=== PATIENT | male | born 1975 | race Caucasian/White ===

== ENCOUNTER 2021-07-10 12:07 | Inpatient (IN) | payer BC ==
[~2021-07-10] VITALS: Ht 177.8 cm; Wt 93.0 kg
[2021-07-10] VITALS (17 sets, daily range): BP systolic 111–173; BP diastolic 82–115
[2021-07-10 12:27] LABS: ABSOLUTE LYMPHOCYTES 2.2 thou/uL (0.8-5.3); ABSOLUTE MONOCYTES 0.5 thou/uL (0.0-1.2); ABSOLUTE NEUTROPHILS 4.4 thou/uL (1.6-8.1); BASOPHILS 0.6 %; EOSINOPHILS 0.4 %; HEMATOCRIT 46.8 % (42.0-52.0); HEMOGLOBIN 16.5 gm/dL (14.0-18.0); LYMPHOCYTES 30.7 %; MCH 30.9 pg (26.0-34.0); MCHC 35.2 g/dL (28.0-37.0); MCV 87.8 fL (80.0-100.0); MONOCYTES 6.6 %; MPV 7.6 fl. (7.2-11.1); NUCLEATED RBCS 0 /100WBC; PLATELET COUNT* 197 thou/uL (150-400); POLYS 61.7 %; RBC 5.33 mil/uL (4.50-6.00); RDW-CV 14.5 % (10.5-14.5); WBC 7.1 thou/uL (4.0-11.0)
[2021-07-10] MEDS ORDERED: ASA81BEC PO (12:27)
[2021-07-10 12:59] LABS: CALCIUM 9.2 mg/dL (8.5-10.1); CREATININE 1.2 mg/dL (0.6-1.3); POTASSIUM 3.2 mmol/L (3.5-5.1)
[2021-07-10 13:03] LABS: ALBUMIN 4.3 g/dL (3.4-5.0); TOTAL BILIRUBIN 1.5 mg/dL (<0.1-1.0); TOTAL PROTEIN 8.8 g/dL (6.4-8.2)
--- NOTE | 2021-07-10 15:34 | CARD ---
[address] [address] CARDIAC CATH REPORT Name: AKSHAT ST Room: [place] [address] ADM IN .R.#: [id number] Admission: 07/10/21 Attend Phys: Bull Bolton MD, Discharge: Date of : 71 Report #: [id number] THIS REPORT FOR: cc: FAM - No family physician/PCP FAM - No family physician/PCP Bull Bolton MD [facility] ~ APPROVED REPORT Study performed: 07/10/2021 12:29:01 Patient Details Patient Status: ED Room #: The patient is a 45 year-old male Event Personnel Dr. Bull Bolton MD, Scrub: Flores Shafer RT(R), Monitor: Ted Estrada RT(R), RN: Estefania Procedures Performed [facility] Diagnostic, STEMI PCI of LAD and DIAG, Hemostasis of the Right Groin with Angioseal Indication STEMI Risk Factors Hypercholesterolemia, Hypertension Admission/Lab Medications/Medications given during procedure Angiomax bolus and infusion Procedure Narrative The patient was brought emergently to the Cardiac Catheterization Laboratory and was prepped and draped in a sterile manner. The right femoral was infiltrated with 2% Lidocaine subcutaneous anesthesia. A 6Fr [place] Sheath sheath was inserted into the right femoral artery. Coronary angiography was performed using coronary diagnostic catheters. The right coronary system was accessed and visualized with a Diagnostic JR4 6Fr catheter. The left coronary system was accessed and visualized with a Diagnostic JL4 6Fr catheter. The left ventricle was accessed and visualized with a Diagnostic 6Fr Pigtail catheter. Left ventricular/Aortic Valve gradient assessed via catheter pullback. Left ventriculogram was performed in ANDERSON projection. Pre-demployment femoral angiogram was performed . [place] [address] CARDIAC CATH REPORT Name: ALMA ROSAAKSHAT M Room: [address] IN [facility]#: [id number] Admission: 07/10/21 Attend Phys: Bull Bolton MD, Discharge: Date of : 71 Report #: [id number] deployed with a 6 Fr Angioseal. There was no hematoma. Intraoperative Conscious Sedation Sedation start time: 1244 Case end Time: 1353 Fluoro Time: 24.2 minutes Dose: DAP 322593 cGycm2 2680.76 mGy Contrast Type and Amount: 420 [place] Coronary Angiography The patient's coronary anatomy is right dominant. Diagnostic Cath Left Main 0% narrowing LAD 30% proximal narrowing with 95% mid vessel stenosis with local thrombus at the site and 80% ostial first diagonal stenosis. There was 75% irregular distal LAD narrowing with a question of local thrombus Circumflex Prominent though nondominant vessel with 8090% tubular narrowing of the proximal portion of the prominent first marginal branch Right Coronary Moderate size dominant vessel with 30% narrowing at the acute margin Left Ventriculography The left ventricle is normal in size with normal contractility. The left ventricular ejection fraction is estimated to be 65%. Left ventricular wall motion abnormalities are not present. There is no mitral insufficiency. Hemodynamics The aortic pressure is 130/90 mmHg with a mean of mmHg. The left ventricular pressure is 130/16ed mmHg with a mean of mmHg. The left ventricular end diastolic pressure is 16 mmHg. There was no gradient across the aortic valve upon pullback. PCI Technique Lesion Anticoagulation was achieved with Angiomax. 15 Percutaneous coronary intervention was performed on the mid left anterior descending artery segment. The lesion stenosis prior to intervention was 95% with JEMAL 2 flow. A XBLAD 3.5 6Fr Guide Catheter was used to engage the Left ostium. A Transparentrees 180cm Interventional Guidewire was used [place] [address] CARDIAC CATH REPORT Name: AKSHAT ST Room: [address] IN [facility]#: [id number] Admission: 07/10/21 Attend Phys: Bull Bolton MD, Discharge: Date of : 71 Report #: [id number] BALLOON DILATION A Balloon catheter Euphora SC 2.25x 12mm was inserted and inflated up to 8.00atm for 10seconds. Additional Inflation: 12.00atm for 13seconds. Additional Inflation: 12.00atm for 10seconds. STENT DEPLOYMENT A Drug Eluting stent [place] RX Stent 2.25x 30mm was inserted and inflated up to 12.00atm for 10seconds. Additional Inflation: 14.00atm for 12seconds. Additional Inflation: 15.00atm for 14seconds. POST STENT DEPLOYMENT BALLOON DILATION A Balloon catheter NC TrekRX 2.29p66jp was inserted and inflated up to 15.00atm for 12seconds. Additional Inflation: 16.00atm for 7seconds. Additional Inflation: 17.00atm for 10seconds. Final angiography reveals 10 % stenosis with JEMAL 3 flow. COMMENTS The PCI was technically complex by virtue of the bifurcation nature of the disease involving the LAD and prominent first diagonal branch. This required multiple wires and stenting of both branches to achieve a satisfactory angiographic result. PCI Technique Lesion 2 Percutaneous Coronary Intervention was performed on the first diagonal branch segment. The lesion stenosis prior to intervention was 80% with JEMAL 3 flow. A XBLAD 3.5 Guide Catheter was used to engage the Left ostium. A BMW 180cm Interventional Guidewire was used to cross the lesion. Balloon Dilation A Balloon catheter Mini Trek RX 2.0x8mm was inserted and inflated up to 10.00atm for 11seconds. Additional Inflation: 10.00atm for 8seconds. Additional Inflation: 10.00atm for 7seconds. Stent Deployment A Drug Eluting stent [place] RX 2.0x12mm was inserted and inflated up to 12.00atm for 18seconds. Additional Inflation: 15.00atm for 14seconds. Additional Inflation: 17.00atm for 13seconds. Final angiography reveals 0 % stenosis with JEMAL [address] Conclusion [address] [place] [address] CARDIAC CATH REPORT Name: AKSHAT ST Room: [address] IN M.R.#: [id number] Admission: 07/10/21 Attend Phys: Bull Bolton MD, Discharge: Date of : 71 Report #: [id number] 1. Acute anterior wall STEMI 2. Significant multivessel coronary artery disease characterized by the following: A 30% proximal LAD narrowing with 95% tubular mid vessel stenosis with local thrombus at the site and 75% irregular distal LAD narrowing with local thrombus noted; there was 80% proximal first diagonal stenosis B 80-90% stenosis of the proximal portion of the prominent first marginal branch of the circumflex C moderate size dominant right coronary artery with 30% narrowing at the acute margin 3. Mild elevation of left ventricular end-diastolic pressure rest 4. Successful PCI with deployment of a drug-eluting stent at the site of 95% tubular mid LAD stenosis with 10% residual narrowing and JEMAL-3 flow to the distal vessel 5. Successful PCI with deployment of a drug-eluting stent at site of 80% proximal first diagonal stenosis with 0% residual narrowing and JEMAL-3 flow to the distal vessel 6. Normal LV function, estimated ejection fraction being 65% without segmental wall motion abnormalities Recommendations Cardiac Risk Reduction Program Aggressive Medical Therapy Medications Administered Aspirin (any) Prasugrel Diagnostic Cath Approved by: Bull Bolton MD Date/Time: 07/10/2021 15:27:08 <ELECTRONICALLY SIGNED> By: Bull Bolton MD, [facility] 07/10/21 1534 1534 1534Bull Bolton MD, FAC /INF
[2021-07-11] VITALS (33 sets, daily range): BP systolic 96–140; BP diastolic 68–101
[2021-07-11 03:14] LABS: HEMATOCRIT 40.8 % (42.0-52.0); MCH 30.6 pg (26.0-34.0); MCHC 34.9 g/dL (28.0-37.0); MCV 87.6 fL (80.0-100.0); MPV 7.6 fl. (7.2-11.1); RBC 4.65 mil/uL (4.50-6.00); RDW-CV 14.4 % (10.5-14.5); WBC 6.5 thou/uL (4.0-11.0)
[2021-07-11 03:20] LABS: ALBUMIN 3.1 g/dL (3.4-5.0); ALKALINE PHOSPHATASE 71 U/L (46-116); ANION GAP 10 mmol/L (7-16); BUN 9 mg/dL (7-18); CALCIUM 8.3 mg/dL (8.5-10.1); CHLORIDE 104 mmol/L (98-107); CHOLESTEROL 200 mg/dL (<200); CO2 24 mmol/L (21-32); GLUCOSE 109 mg/dL (70-99); HDL CHOLESTEROL 34 mg/dL (>40); HEMOGLOBIN 14.2 gm/dL (14.0-18.0); LDL CHOLESTEROL 146 mg/dL (<100); POTASSIUM 3.6 mmol/L (3.5-5.1); SGOT 28 U/L (15-37); SGPT 19 U/L (30-65); SODIUM 138 mmol/L (136-145); TC:HDL 5.9 Ratio (Not establshd); TOTAL BILIRUBIN 0.6 mg/dL (<0.1-1.0); TOTAL PROTEIN 6.6 g/dL (6.4-8.2); TRIGLYCERIDE 100 mg/dL (<150); VLDL 20 mg/dL (<40)
[2021-07-11 03:35] LABS: SERUM ASSESSMENT Clear
--- NOTE | 2021-07-11 11:48 | EKG ---
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1975 Requested By: Rakesh Duffy Order Number: [id number] MD: Ronald Mukherjee Measurements Intervals [place] Rate: 97 P: 54 IN: 174 QRS: 42 QRSD: 105 T: 47 QT: 366 QTc: 465 Interpretive Statements Sinus rhythm Probable left atrial enlargement Extensive anterior infarct, acute (LAD) No previous ECG available for comparison Electronically Signed On 07-11-2021 11:48:21 CDT by Ronald Mukherjee [email or web address] <ELECTRONICALLY SIGNED> By: Winter Mukherjee MD, [facility] 07/11/21 1148 121 121 Winter Mukherjee MD, [facility] /EPI
--- NOTE | 2021-07-11 11:49 | EKG ---
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: : 1975 Requested By: Bull Bolton Order Number: [id number] Reading MD: Ronald Mukherjee Measurements Intervals [place] Rate: 72 P: 16 MS: 169 QRS: 16 QRSD: 103 T: 17 QT: 396 QTc: 434 Interpretive Statements Sinus rhythm RSR' in V1 or V2, probably normal variant Compared to ECG 07/10/2021 12:12:18 RSR' in V1 or V2 now present Myocardial infarct finding no longer present Electronically Signed On 07-11-2021 11:49:17 CDT by Ronald Mukherjee [email or web address] <ELECTRONICALLY SIGNED> By: Winter Mukherjee MD, FAC 07/11/21 1149 1435 1435 Winter Mukherjee MD, [facility] /EPI
[2021-07-12] VITALS: BP 121/78
[2021-07-12 04:00] VITALS: BP 143/99
[2021-07-12 04:30] LABS: CALCIUM 8.6 mg/dL (8.5-10.1); CREATININE 0.8 mg/dL (0.6-1.3); POTASSIUM 3.9 mmol/L (3.5-5.1)
[2021-07-12 08:00] VITALS: BP 145/72
[2021-07-12] MEDS ORDERED: EFFIENT10 MG PO (08:55)
[2021-07-12] MEDS ORDERED: LIPITOR 40 MG T40 M1 PO (08:55)
[2021-07-12] MEDS ORDERED: CARVEDILOL12.5 MG PO (08:56)
[2021-07-12] MEDS ORDERED: LISINOPRIL20 MG PO (08:57)
[2021-07-12] MEDS ORDERED: NITROGLYCERIN0.4 MG SUBLING (08:58)
[2021-07-12 09:39] VITALS: BP 145/72
== END 2021-07-12 09:55 | disposition home or self-care (01) | DRG 247 ==
LOC: M.ERS 12:07 → M.CL 12:34 → M.ERS 12:34 → M.TBA-CV 14:55 → M.ICU 17:23 → M.2W 07-11 15:55
PROVIDERS: Physician Assistant; ADMIT Internal Medicine; ATTEND Internal Medicine
PROC: B211YZZ Fluoroscopy of Multiple Coronary Arteries using Other Contrast (ICD-10-PCS; principal; 2021-07-10)
PROC: B41FYZZ Fluoroscopy of Right Lower Extremity Arteries using Other Contrast (ICD-10-PCS; principal; 2021-07-10)
PROC: B215YZZ Fluoroscopy of Left Heart using Other Contrast (ICD-10-PCS; principal; 2021-07-10)
PROC: 4A023N7 Measurement of Cardiac Sampling and Pressure, Left Heart, Percutaneous Approach (ICD-10-PCS; principal; 2021-07-10)
PROC: 027135Z Dilation of Coronary Artery, Two Arteries with Two Drug-eluting Intraluminal Devices, Percutaneous Approach (ICD-10-PCS; principal; 2021-07-10)
DX: I21.09 ST elevation (STEMI) myocardial infarction involving other coronary artery of anterior wall (principal); I10 Essential (primary) hypertension; E78.5 Hyperlipidemia, unspecified; Z20.822 Contact with and (suspected) exposure to COVID-19; Z82.49 Family history of ischemic heart disease and other diseases of the circulatory system

== ENCOUNTER 2021-07-20 09:16 | Observation (INO) | payer BC ==
[2021-07-20] VITALS (14 sets, daily range): BP systolic 121–152; BP diastolic 82–98
[~2021-07-20] VITALS: Ht 175.3 cm; Wt 100.2 kg
[~2021-07-20 09:16] MED LIST: ASA81BEC PO; CARVEDILOL12.5 MG PO; EFFIENT10 MG PO; LIPITOR 40 MG T40 M1 PO; LISINOPRIL20 MG PO; NITROGLYCERIN0.4 MG SUBLING
[2021-07-20 10:05] LABS: ABSOLUTE BASOPHILS 0.1 thou/uL (0.0-0.2); ABSOLUTE LYMPHOCYTES 1.1 thou/uL (0.8-5.3); ABSOLUTE MONOCYTES 0.3 thou/uL (0.0-1.2); ABSOLUTE NEUTROPHILS 3.6 thou/uL (1.6-8.1); HEMOGLOBIN 13.6 gm/dL (14.0-18.0); LYMPHOCYTES 21.6 %; MCH 30.9 pg (26.0-34.0); MCV 88.5 fL (80.0-100.0); MONOCYTES 6.7 %; NUCLEATED RBCS 0 /100WBC; PLATELET COUNT* 178 thou/uL (150-400); POLYS 69.7 %; RBC 4.41 mil/uL (4.50-6.00); RDW-CV 14.2 % (10.5-14.5); WBC 5.2 thou/uL (4.0-11.0)
--- NOTE | 2021-07-20 10:40 | EKG ---
[place] [address] ELECTROCARDIOGRAM REPORT Name: AKSHAT ST Room: [facility]#: [id number] Admission: Attend Phys: Discharge: Date of : 71 Date of Service: 07/20/21921 Report #: [id number] THIS REPORT FOR: //name// [facility] ED Test Date: 2021-07-20 Test Time: 09:22:24 Pat Name: AKSHAT ST Department: Room: Gender: Anesthesiologist Attending: : 1975 Requested By: Wilfredo Gupta Order Number: [id number] MD: Bull Bolton Measurements Intervals [place] Rate: 69 P: 33 VA: 168 QRS: 34 QRSD: 99 T: 27 QT: 380 QTc: 407 Interpretive Statements Sinus rhythm Low voltage, precordial leads RSR' in V1 or V2, probably normal variant Nonspecific T abnormalities, anterior leads; consider ischemia Compared to ECG 07/10/2021 14:35:18 Low QRS voltage now present T-wave abnormality now present Electronically Signed On 07-20-2021 10:39:42 CDT by Bull Bolton [email or web address] <ELECTRONICALLY SIGNED> By: Bull Bolton MD, FACC 07/20/21 1039 1 1 Bull Bolton MD, FACC /EPI
[2021-07-20 10:59] LABS: CALCIUM 8.9 mg/dL (8.5-10.1); CREATININE 1.1 mg/dL (0.6-1.3); POTASSIUM 3.9 mmol/L (3.5-5.1)
[2021-07-20 11:10] LABS: ALBUMIN 3.7 g/dL (3.4-5.0); MAGNESIUM 2.1 mg/dL (1.8-2.4); TOTAL BILIRUBIN 0.7 mg/dL (<0.1-1.0); TOTAL PROTEIN 7.5 g/dL (6.4-8.2)
--- NOTE | 2021-07-20 14:47 | H ---
[address] [address] HISTORY AND PHYSICAL Name: AKSHAT ST Room: [place] [address] ADM [place]#: [id number] Admission: 07/20/21 Attend Phys: Bull Bolton MD, Discharge: Date of : 71 Report #: [id number] THIS REPORT FOR: cc: FAM - No family physician/PCP FAM - No family physician/PCP Bull Bolton MD [facility] ~ ADMIT DATE: 07/20/2021 ADMITTING HISTORY AND PHYSICAL HISTORY OF PRESENT ILLNESS: The patient is a very pleasant 45-year-old male who presented 2 weeks ago with acute anterior wall infarction. He underwent acute catheterization with stenting of the LAD and prominent first diagonal branch. He also has significant circumflex and distal LAD disease noted at that time, which was not approached in the acute setting. Since discharge, he has done quite well. He did experience recurrent chest discomfort this morning and presented to the ER. EKG reveals minor anterior precordial ST-T changes, which are different from his most recent tracing and ischemia must be considered. He has underlying hyperlipidemia and a positive family history of premature coronary artery disease. He does not smoke nor does he have diabetes or hypertension. He has been compliant with dual antiplatelet therapy and statin since discharge. PAST MEDICAL HISTORY: Remarkable for the prior infarction. SOCIAL HISTORY: He is . He is nonsmoker. REVIEW OF SYSTEMS: Remarkable for the prior infarct. PHYSICAL EXAMINATION: GENERAL: Reveals a mildly distressed middle-aged male. VITAL SIGNS: Blood pressure is 110/70, pulse rate is 65, respirations are 18 per minute. NECK: Jugular venous pressure is normal. CHEST: Clear. CARDIAC: Reveals normal first and second heart sounds without rubs, murmurs or gallops. ABDOMEN: Mildly obese and nontender. EXTREMITIES: Without edema with modest ecchymosis of the right femoral site of recent catheterization. There are intact femoral, [place] [address] HISTORY AND PHYSICAL Name: AKSHAT ST Room: [address] M.R.#: [id number] Admission: 07/20/21 Attend Phys: Bull Bolton MD, Discharge: Date of : 71 Report #: [id number] [facility] DATA: EKG reveals sinus rhythm with anterior ST-T changes compatible with ischemia. IMPRESSION: 1. Acute coronary syndrome with recurrent angina. 2. Status post recent anterior wall myocardial infarction. 3. Status post percutaneous coronary intervention to the left anterior descending. 4. Hypercholesterolemia. 5. Borderline hypertension. RECOMMENDATIONS: Given the aforementioned clinical scenario with recrudescence of chest pain compatible with angina post infarct, I would recommend recatheterization to define current coronary anatomy and outline the prospects for subsequent therapeutic modification. This has been discussed with the patient, I will plan to proceed with cardiac catheterization urgently on 07/20/2021. Critical care time is 35 minutes from 1025 to 1100 hours on 07/20/2021. <ELECTRONICALLY SIGNED> By: Bull Bolton MD, FACC 07/20/21 1447 1000 1010John Geovanni Bolton MD, FACC /nt
--- NOTE | 2021-07-20 14:55 | EKG ---
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: : 1975 Requested By: Bull Bolton Order Number: [id number] Reading MD: Bull Bolton Measurements Intervals [place] Rate: 60 P: 32 ID: 171 QRS: 17 QRSD: 105 T: 20 QT: 413 QTc: 413 Interpretive Statements Sinus rhythm RSR' in V1 or V2, probably normal variant Nonspecific T abnormalities, anterior leads, consider ischemia Compared to ECG 07/20/2021 09:22:24 Possible ischemia persists T-wave abnormality still present Electronically Signed On 07-20-2021 14:54:51 CDT by Bull Bolton [email or web address] <ELECTRONICALLY SIGNED> By: Bull Bolton MD, FACC 07/20/21 1454 1353 1353 Bull Bolton MD, FACC /EPI
--- NOTE | 2021-07-20 15:35 | CARD ---
[address] [address] CARDIAC CATH REPORT Name: AKSHAT ST Room: [address] M.RMouna#: [id number] Admission: 07/20/21 Attend Phys: Bull Bolton MD, Discharge: Date of : 71 Report #: [id number] THIS REPORT FOR: cc: FAM - No family physician/PCP FAM - No family physician/PCP Bull Bolton MD [facility] [place] [facility] ~ APPROVED REPORT Study performed: 07/20/2021 11:18:24 Patient Details Patient Status: ED Room #: 17 The patient is a 45 year-old male Event Personnel Dr. Bolton interventional cardiology Procedures Performed Left Heart Cathetherization with left ventriculogram, drug eluding stent placement to distal left anterior descending artery, and drug eludung stent placement to Obtuse Marginal branch of left circumflex. Indication Unstable angina Risk Factors Hypercholesterolemia, Hypertension Previous Procedures/Diagnoses Previous PCI, Previous [place] Procedure Narrative The patient was brought urgently to the Cardiac Catheterization Laboratory and was prepped and draped in a sterile manner. The left femoral was infiltrated with 2% Lidocaine subcutaneous anesthesia. IV conscious sedation was used throughout procedure with appropriate monitoring and was performed in the presence of a registered nurse who was an independent trained observer other than the physician performing the procedure. A 6 maori [place] sheath was inserted into the left femoral artery. Coronary angiography was performed using coronary diagnostic catheters. The right coronary system was accessed and visualized with a Diagnostic 3DRC 6fr catheter. The left coronary system was accessed and visualized with a Diagnostic JL4 6[place] [address] CARDIAC CATH REPORT Name: AKSHAT ST Fabrizio Room: [address] [place]#: [id number] Admission: 07/20/21 Attend Phys: Bull Bolton MD, Discharge: Date of : 71 Report #: [id number] catheter. The left ventricle was accessed and visualized with a Diagnostic straight Pigtail 6fr catheter. Left ventricular/Aortic Valve gradient assessed via simultaneous left ventricle and right femoral artery pressurevia catheter pullback. Left ventriculogram was performed in HUITRON projection. Pre-demployment femoral angiogram was performed TURK[place]. Closure device was deployed with a 6 Fr Angioseal. The patient tolerated the procedure well and there were no complications associated with the procedure. There was no hematoma. Intraoperative Conscious Sedation Sedation start time: 1147 Case end Time: 1311 Fentanyl 50.0 mcg Versed 3.0 mg Fluoro Time: 20.5 minutes Dose: DAP 091237 cGycm2 3643 mGy Contrast Type and Amount: Visipaque 350ml Coronary Angiography The patient's coronary anatomy is right dominant. Diagnostic Cath Left Main 0% narrowing LAD 30% proximal LAD narrowing followed by widely patent proximalmid LAD stent and a widely patent first diagonal stent. There is 80% tubular distal LAD narrowing followed by 50% apical LAD Circumflex Prominent though nondominant vessel with 80% tubular narrowing of the proximal portion of the prominent first marginal branch of the nondominant circumflex Right Coronary Moderate size dominant vessel with 30% mid vessel narrowing Left Ventriculography The left ventricle is normal in size with normal contractility. The left ventricular ejection fraction is estimated to be 60%. Left ventricular wall motion abnormalities are not present. There is no mitral insufficiency. Hemodynamics The aortic pressure is 111/81 mmHg with a mean of 96 mmHg. The left ventricular pressure is 135/-6 mmHg with a mean of mmHg. The left ventricular end diastolic pressure is 15 mmHg. There was no gradient across the [place] [address] CARDIAC CATH REPORT Name: AKSHAT ST Room: [address]#: [id number] Admission: 07/20/21 Attend Phys: Bull Bolton MD, Discharge: Date of : 71 Report #: [id number] PCI Technique Lesion Anticoagulation was achieved with Angiomax. Percutaneous coronary intervention was performed on the distal left anterior descending artery segment. The lesion stenosis prior to intervention was 80% with JEMAL 3 flow. A XBLAD 3.5 6Fr Guide Catheter was used to engage the Left ostium. A BMW 190cm Interventional Guidewire was used to cross the lesion. BALLOON DILATION A Balloon catheter 2.0 x 200 Mini Trek was inserted and inflated up to 10atm for 11seconds. Additional Inflation: 12atm for 9seconds. Additional Inflation: 10atm for 13seconds. STENT DEPLOYMENT A drug-eluting stent 2.0 x 30 Jl was inserted and inflated up to 12atm for 12seconds. Additional Inflation: 14atm for 13seconds. Additional Inflation: 16atm for 8seconds. POST STENT DEPLOYMENT BALLOON DILATION A Balloon catheter 2.0 x 12 NC Trek was inserted and inflated up to 16atm for 8seconds. Additional Inflation: 18atm for 9seconds. Additional Inflation: 19atm for 13seconds. Final angiography reveals 10 % stenosis with JEMAL 3 flow. PCI Technique Lesion 2 Percutaneous Coronary Intervention was performed on the first obtuse marginal branch segment. The lesion stenosis prior to intervention was 80% with JEMAL 3 flow. A XBLAD3.5 6Fr Guide Catheter was used to engage the Left ostium. A BMW 190cm Interventional Guidewire was used to cross the lesion. Balloon Dilation A Balloon catheter 2.25 x 15 Trek was inserted and inflated up to 12atm for 16seconds. Stent Deployment A drug-eluting stent 2.25 x 18 [place] was inserted and inflated up to 12atm for 8seconds. Additional Inflation: 15atm for seconds. Final angiography reveals 0 % stenosis with JEMAL 3 flow. Conclusion Significant multivessel coronary [place] [address] CARDIAC CATH REPORT Name: ALMA ROSAAKSHAT M Room: [address] [place]#: [id number] Admission: 07/20/21 Attend Phys: Bull Bolton MD, Discharge: Date of : 71 Report #: [id number] following: A 30% proximal LAD narrowing followed by widely patent proximalmid LAD stent and a widely patent first diagonal stent; there was 80% tubular distal LAD stenosis followed by 50% apical LAD narrowing B 80% narrowing of the proximal portion of the prominent first marginal branch of the nondominant circumflex C moderate size dominant right coronary artery with 30% mid vessel narrowing 2. Normal left ventricular systolic function, estimate ejection fraction 60% 3. Mild elevation of left ventricular diastolic pressure at rest 4 Successful PCI with deployment of a drug-eluting stent at the site of 80% tubular distal LAD stenosis with 10% residual narrowing and JEMAL-3 flow to the distal vessel 5. Successful PCI with deployment of a drug-eluting stent at the site of 80% tubular narrowing of the first marginal branch of the nondominant circumflex with 0% residual narrowing and JEMAL-3 flow to the distal vessel Recommendations Cardiac Risk Reduction Program Aggressive Medical Therapy Medications Administered Prasugrel Diagnostic Cath Approved by: Bull Bolton MD Date/Time: 07/20/2021 15:30:22 <ELECTRONICALLY SIGNED> By: Bull Bolton MD, FACC 07/20/21 1535 1535 1535Bull Bolton MD, FACC /INF
[2021-07-21 00:10] VITALS: BP 119/73
[2021-07-21 04:04] LABS: HEMOGLOBIN 12.6 gm/dL (14.0-18.0); MCH 30.8 pg (26.0-34.0); MCV 88.2 fL (80.0-100.0); MPV 8.3 fl. (7.2-11.1); RBC 4.08 mil/uL (4.50-6.00); RDW-CV 14.5 % (10.5-14.5); WBC 7.7 thou/uL (4.0-11.0)
[2021-07-21 04:10] VITALS: BP 108/71
[2021-07-21 04:11] LABS: ALKALINE PHOSPHATASE 76 U/L (46-116); ANION GAP 11 mmol/L (7-16); BUN 10 mg/dL (7-18); CHLORIDE 101 mmol/L (98-107); CHOLESTEROL 124 mg/dL (<200); CK-MB MASS 5.1 ng/mL (<0.5-3.6); CO2 23 mmol/L (21-32); GLUCOSE 98 mg/dL (70-99); HDL CHOLESTEROL 35 mg/dL (>40); LDL CHOLESTEROL 73 mg/dL (<100); POTASSIUM 3.5 mmol/L (3.5-5.1); SGOT 16 U/L (15-37); SGPT 16 U/L (30-65); SODIUM 135 mmol/L (136-145); TC:HDL 3.5 Ratio (Not establshd); TOTAL BILIRUBIN 0.9 mg/dL (<0.1-1.0); TOTAL PROTEIN 6.4 g/dL (6.4-8.2); TRIGLYCERIDE 81 mg/dL (<150); VLDL 16 mg/dL (<40)
[2021-07-21 04:18] LABS: SERUM ASSESSMENT Clear
[2021-07-21 09:25] VITALS: BP 124/86
[2021-07-21 11:00] VITALS: BP 108/71
[2021-07-21 11:38] VITALS: BP 108/71
[2021-07-21 11:48] VITALS: BP 108/71
--- NOTE | 2021-07-21 12:22 | EKG ---
[place] [address] ELECTROCARDIOGRAM REPORT Name: AKSHAT ST Room: [address]#: [id number] Admission: 07/20/21 Attend Phys: Fabrizio Campuzano Discharge: Date of : 71 Date of Service: 07/21/21 0544 Report #: [id number] THIS REPORT FOR: //name// [facility] Test Date: 2021-07-21 Test Time: 05:44:39 Pat Name: AKSHAT ST Department: Room: [facility] Gender: M Lathing Supervisor: DESIRAE : 1975 Requested By: Bull Bolton Order Number: [id number] Reading MD: Bull Bolton Measurements Intervals [place] Rate: 74 P: 17 NE: 171 QRS: 9 QRSD: 95 T: 12 QT: 400 QTc: 444 Interpretive Statements Sinus rhythm Low voltage, precordial leads Nonspecific T abnormalities, anterior leads consider ischemia Compared to ECG 07/20/2021 13:53:34 Low QRS voltage now present Possible ischemia persists T-wave abnormality still present Electronically Signed On 07-21-2021 12:22:46 CDT by Bull Bolton [email or web address] <ELECTRONICALLY SIGNED> By: Bull Bolton MD, FACC 07/21/21 1222 0544 Bull Bolton MD, FAC /EPI
--- NOTE | 2021-07-21 15:04 | D ---
[address] [address] DISCHARGE SUMMARY Name: AKSHAT ST Room: [address] Quita Hernandez#: [id number] Admission: 07/20/21 Attend Phys: Bull Bolton MD, Discharge: 07/21/21 Date of : 71 Report #: [id number] THIS REPORT FOR: cc: FAM - No family physician/PCP FAM - No family physician/PCP Bull Bolton MD [facility] DATE OF DISCHARGE: 07/21/2021 FINAL DISCHARGE DIAGNOSES: 1. Unstable angina. 2. Status post recent anterior wall ST segment elevation myocardial infarction. 3. Hypertension. 4. Hyperlipidemia. 5. Status post PCI to the LAD and circumflex. PROCEDURES: On 07/20/2021 -- left heart catheterization, left ventriculography, selective coronary arteriography, and percutaneous coronary intervention with deployment of drug-eluting stents at the site of 80% distal LAD stenosis and 80% first marginal stenosis in the circumflex. HOSPITAL COURSE: The patient is a very pleasant 45-year-old male who presented 10 days ago with acute anterior wall ST segment elevation myocardial infarction. He has underlying hypertension and hyperlipidemia. He underwent acute catheterization with acute stenting of the LAD and first diagonal with one stent deployed at both sites. There was a good angiographic result. He was noted to have additional disease in the distal LAD and marginal branch of the circumflex, which were not approached in the acute setting. Since discharge, he has noted some episodes of chest pain compatible with recurrent angina without anything as prolonged or severe as that associated with his acute infarct. In this context, he presented to the ER on 07/20/2021. After review of the data, proceed with recatheterization on 07/20/2021, which revealed normal LV function with ejection fraction of 60%. Proximal -- mid LAD and first diagonal stents were widely patent. There was 80% tubular distal LAD narrowing, 80% stenosis of the first marginal branch of the nondominant circumflex. I deployed one 2.0 x 30 mm [place] drug-eluting stent in the LAD, post-dilating with a 2.0 x 12 NC Trek to trial of 18 atmospheres. There was 10% residual narrowing. I deployed one 2.25 x 18 mm [place] drug-eluting stent at site of 80% first marginal stenosis with 0% residual narrowing and JEMAL 3 flow to the distal vessel. The patient did well post-procedurally and there was good hemostasis at the left [place] [address] DISCHARGE SUMMARY Name: AKSHAT ST Room: [address] M.R.#: [id number] Admission: 07/20/21 Attend Phys: Bull Bolton MD, Discharge: 07/21/21 Date of : 71 Report #: [id number] CK-MB andrzej inconsequentially to 5.1. Sodium was 135, potassium 3.5, BUN 10, creatinine 1.0, glucose 98. Hemoglobin 12.6, white blood cell count 7700 with 154,000 platelets. The patient ambulated in the hallways without difficulty. DISCHARGE MEDICATIONS: He was discharged home on the following medications: Aspirin 81 mg daily, prasugrel or Effient 10 mg daily with 30 mg periprocedural dose having been given, atorvastatin 40 mg daily, carvedilol 12.5 mg b.i.d., lisinopril 20 mg daily and p.r.n. sublingual nitroglycerin. I will plan to see the patient in followup on 09/01/2021 at our [facility] [place] office. Therefore, the patient is discharged home in stable condition on the aforementioned medications with followup as described above. <ELECTRONICALLY SIGNED> By: Bull Bolton MD, FACC 07/21/21 [id number] Bolton MD, FACC /nt
== END 2021-07-21 12:30 | disposition home or self-care (01) ==
LOC: M.ERS 09:16 → M.TBA-CV 10:56 → M.TBA-ER 10:56 → M.ERS 11:30 → M.TBA-CV 13:20 → M.2W 15:00
PROVIDERS: Emergency Medicine Emergency Medical Services; ADMIT Internal Medicine; ATTEND Internal Medicine
DX: I25.110 Atherosclerotic heart disease of native coronary artery with unstable angina pectoris (principal); Z20.822 Contact with and (suspected) exposure to COVID-19; I10 Essential (primary) hypertension; E78.5 Hyperlipidemia, unspecified; I25.2 Old myocardial infarction; Z79.82 Long term (current) use of aspirin; Z79.899 Other long term (current) drug therapy